=== PATIENT | male | born 1975 | race Caucasian/White ===

== ENCOUNTER 2021-02-01 13:08 | Emergency (ER) | payer OTHER ==
[2021-02-01] MEDS ORDERED: MEDROL 4MG DOSEP4 MG PO (14:37)
[2021-02-01] MEDS ORDERED: NAPROXEN500 MG PO (14:37)
[2021-02-01] MEDS ORDERED: VOLTAREN ARTHRI20 GM TOP (14:37)
== END 2021-02-01 14:46 | disposition home or self-care (01) ==
LOC: FER 13:08
DX: G56.22 Lesion of ulnar nerve, left upper limb (principal)
CPT/HCPCS: 73080